=== PATIENT | female | born 1955 | race Caucasian/White ===

== ENCOUNTER → 2022-04-12 | Outpatient (CLI) | payer MEDICARE | LOC: EXRD 10:44 | DX: E28.39 Other primary ovarian failure (principal); Z78.0 Asymptomatic menopausal state | CPT/HCPCS: 77080 ==

== ENCOUNTER → 2022-04-12 | Outpatient (CLI) | payer MEDICARE | LOC: MAMO 04-09 08:00 | DX: Z12.31 Encounter for screening mammogram for malignant neoplasm of breast (principal); Z90.710 Acquired absence of both cervix and uterus | CPT/HCPCS: 77063; 77067 ==